=== PATIENT | female | born 1985 | race Caucasian/White ===

== ENCOUNTER 2023-02-02 07:02 | Outpatient (OUT) | payer BC, OTHER, SELFPAY ==
[2023-02-02 07:48] LABS: Bilirubin Direct 0.2 mg/dL (0.0-0.2); Bilirubin Total 0.9 mg/dL (0.2-1.0)
== END 2023-02-02 07:03 | disposition home or self-care (01) ==
LOC: LAB 07:07
PROVIDERS: PCP Family Medicine; Visit Provider Family Medicine
DX: R17 Unspecified jaundice (principal)
CPT/HCPCS: 36415; 82247; 82248

== ENCOUNTER 2023-03-21 04:23 | Observation (INO) | payer BC, SELFPAY ==
[2023-03-21] VITALS (14 sets, daily range): BP systolic 122–165; BP diastolic 71–99; PULSE 80–114; RESP 12–20; TEMP 36.4–37.2; O2SAT 95–99; BMI 34.0; BMI 31.4
--- NOTE | 2023-03-21 04:43 | ED.ABDPAIN1 ---
HPI - Abdominal Pain General Chief Complaint: Abdominal Pain Stated Complaint: LT FLANK PAIN Time Seen by Provider: 03/21/23 04:40 Source: patient Mode of arrival: walk-in Limitations: no limitations History of Present Illness HPI narrative: 37-year-old female presents for left-sided flank pain which started four days ago and is intermittent. She's had kidney stones in the past and thinks it might be another one. No trauma or fever or gross hematuria. The pain is moderate. Related Data Home Medications Medication Instructions Recorded Confirmed albuterol sulfate 90 mcg/actuation inhalation 03/21/23 aerosol inhaler atorvastatin 40 mg tablet mg 03/21/23 bupropion HCl 150 mg 24 hr tablet, mg PO 03/21/23 extended release clonazepam 0.5 mg tablet mg 03/21/23 cyclobenzaprine 10 mg tablet mg 03/21/23 lamotrigine 100 mg tablet mg 03/21/23 lamotrigine 25 mg tablet mg 03/21/23 losartan 50 mg-hydrochlorothiazide tab 03/21/23 12.5 mg tablet propranolol 20 mg tablet mg 03/21/23 sertraline 25 mg tablet mg 03/21/23 Allergies Allergy/AdvReac Type Severity Reaction Status Date / Time sulfamethoxazole Allergy Verified 03/21/23 04:29 [From Bactrim] trimethoprim [From Bactrim] Allergy Verified 03/21/23 04:29 Review of Systems ROS Narrative A ten point review of systems is negative except as noted above. PFSH PFSH Social History Smoking status: Current every day smoker Exam Narrative Exam Narrative: Nurses note and vital signs reviewed and patient is not hypoxic. General: The patient appears well and in no apparent distress. Patient is resting comfortably on cart. Skin: Warm, dry, no pallor noted. There is no rash noted. Head: Normocephalic, atraumatic Eye: Normal conjunctiva, no drainage Ears, Nose, Mouth, and Throat: oral mucosa is moist. Nares patent. Cardiovascular: Regular Rate and Rhythm Respiratory: Patient is in no distress, no accessory muscle use, lungs are clear to auscultation, no wheezing, rales or rhonchi Back: non-tender, no CVA tenderness bilaterally to percussion. no bruise or rash present. GI: mild tenderness to palpation on the left side without mass Musculoskeletal: The patient has no evidence of calf tenderness, no pitting edema, symmetrical pulses noted bilaterally Neurological: A&O, normal speech Psychiatric: Cooperative Constitutional Vital Signs, click to edit/add: Last Vital Signs Temp 97.9 F 03/21/23 04:27 Pulse 94 H 03/21/23 04:27 Resp 16 03/21/23 04:27 BP 165/99 H 03/21/23 04:27 Pulse Ox 99 03/21/23 04:27 O2 Del Method Room Air 03/21/23 04:27 Course Vital Signs Vital signs: Vital Signs Temperature 97.9 F 03/21/23 04:27 Pulse Rate 94 H 03/21/23 04:27 Respiratory Rate 16 03/21/23 04:27 Blood Pressure 165/99 H 03/21/23 04:27 Pulse Oximetry 99 03/21/23 04:27 Oxygen Delivery Method Room Air 03/21/23 04:27 Temperature 97.9 F 03/21/23 04:27 Pulse Rate 94 H 03/21/23 04:27 Respiratory Rate 16 03/21/23 04:27 Blood Pressure 165/99 H 03/21/23 04:27 Pulse Oximetry 99 03/21/23 04:27 Oxygen Delivery Method Room Air 03/21/23 04:27 MDM - Abdominal Pain MDM Narrative Medical decision making narrative: CAT scan reveals what appears to be a 6 cm ovarian cyst and radiologist is recommending an ultrasound. This has been ordered and the patient is signed out to Dr. Jiang change of shift. No evidence of kidney stone. Differential Diagnosis Differential diagnosis: Likely other (kidney stone, diverticulitis) Lab Data Attestation: I reviewed the patient's lab results. Labs: Lab Results 03/21/23 03/21/23 Range/Units 04:30 04:35 WBC 7.5 (4.0-11.0) 10^3/uL RBC 4.12 L (4.20-5.40) 10^6/uL Hgb 13.3 (12.0-16.0) g/dL Hct 39.7 (36.0-48.0) % MCV 96.4 (81.0-99.0) fL MCH 32.3 (26.7-34.0) pg MCHC 33.5 (29.9-35.2) g/dL RDW 12.0 (11.0-15.0) % Plt Count 296 (150-450) 10^3/uL MPV 9.4 L (9.5-13.5) fL Neut % (Auto) 53.5 (43.0-75.0) % Lymph % (Auto) 35.7 (20.5-60.0) % Gaines % (Auto) 7.7 (1.7-12.0) % Eos % (Auto) 2.3 (0.9-7.0) % Baso % (Auto) 0.5 (0.2-2.0) % Neut # (Auto) 4.0 (1.4-6.5) 10^3/uL Lymph # (Auto) 2.7 (1.2-3.8) 10^3/uL Gaines # (Auto) 0.6 (0.3-0.8) 10^3/uL Eos # (Auto) 0.2 (0.0-0.7) 10^3/uL Baso # (Auto) 0.0 (0.0-0.1) 10^3/uL Abs Immat Gran (auto) 0.02 (0.00-0.03) 10^3/uL Imm/Tot Granulo (auto) 0.3 (0.0-0.5) % Sodium 140 (136-145) mmol/L Potassium 3.2 L (3.5-5.1) mmol/L Chloride 102 (98-107) mmol/L Carbon Dioxide 25.4 (21.0-32.0) mmol/L Anion Gap 15.8 BUN 12.0 (7.0-18.0) mg/dL Creatinine 1.48 H (0.55-1.02) mg/dL Est GFR ( Amer) 48 L (>=60) Est GFR (Non-Af Amer) 40 L (>=60) BUN/Creatinine Ratio 8.1 Glucose 134 H (74-106) mg/dL Calcium 9.0 (8.5-10.1) mg/dL Serum HCG, Qual Negative (NEGATIVE) Urine Color Yellow (YELLOW) Urine Clarity Clear (CLEAR) Urine pH 6.0 (5.0-9.0) Ur Specific [place] 1.025 (1.005-1.025) Urine Protein 100 A (NEG/TRACE) mg/dL Urine Glucose (UA) Negative (NEGATIVE) mg/dL Urine Ketones Negative (NEGATIVE) mg/dL Urine Occult Blood Negative (NEGATIVE) Urine Nitrite Negative (NEGATIVE) Urine Bilirubin Negative (NEGATIVE) Urine Urobilinogen 0.2 (0.2-1.0) EU/dL Ur Leukocyte Esterase Negative (NEGATIVE) Urine RBC 0-2 (0-2) #/HPF Urine WBC None seen (NONE SEEN) #/HPF Ur Squamous Epith Cells Few A (NONE/RARE) #/LPF Urine Crystals None seen (None Seen) #/HPF Urine Bacteria None seen (NONE SEEN) #/HPF Urine Casts None seen (NONE SEEN) #/LPF Urine Mucus None seen (NONE SEEN) Imaging Data CT scan - abdomen: Radiologist's impression: Procedure: CT abdomen pelvis w con EXAM: CT abdomen pelvis w con HISTORY: left abd pain COMPARISON: 08/04/2018. TECHNIQUE: Axial CT images were obtained through the abdomen and pelvis. No intravenous contrast was administered. The absence of intravenous contrast does limit evaluation particularly of the parenchymal organs and for adenopathy. Coronal and sagittal reformats were obtained. Dose reduction techniques were achieved by using automated exposure control and/or adjustment of mA and/or kV according to patient size and/or use of iterative reconstruction technique. FINDINGS: FINDINGS: Lungs: Visualized lung li are clear. Liver: Unremarkable with no focal lesion Gallbladder and biliary system: Gallbladder no calcified stones. Biliary ducts no pathologic dilation. Spleen: Spleen is not enlarged Pancreas: Unremarkable Adrenal Glands: Adrenals no masses. Kidneys and ureters: No hydronephrosis or obstructing stones. There is mild prominence of the left renal collecting system with mild left-sided hydroureter visualized likely secondary to the left-sided adnexal cyst. Stable renal cortical scarring again noted along the bilateral kidneys with coarse parenchymal calcifications visualized. Vascular: No evidence of abdominal aortic aneurysm. Lymph nodes: No pathologically enlarged nodes are seen. Gastrointestinal Tract: Stomach: Unremarkable Bowel: No pathologic dilation or mucosal thickening. Postsurgical changes visualized. Appendix: Appendix not clearly visualized no pericecal inflammation to suggest acute appendicitis. Peritoneal Cavity: No free air. No significant fluid collections. Soft tissues abdominal wall: No abdominal wall hernias containing bowel. Small fat-containing anterior abdominal hernia. Reproductive: Patient is status post hysterectomy. There is a left adnexal cyst visualized measuring 6.4 x 6 cm. Bladder: Bladder without apparent masses. The bladder is underdistended which does limit evaluation of the wall. Bony structures: No fractures are seen. IMPRESSION: 1. There is prominence of the left renal collecting system with mild hydroureter likely secondary to a large left sided adnexal cyst which measures approximately 6.4 x 6 cm, transvaginal ultrasound may be done to further evaluate. 2. Renal cortical scarring bilaterally. 3. Status post hysterectomy. Electronically authenticated by: LIBRADO LEIGH Date: 03/21/2023 06:30 Discharge Plan Discharge Patient Disposition: Still a Patient
[2023-03-21 04:51] LABS: Bilirubin Urine NEGATIVE (NEGATIVE); Blood Urine NEGATIVE (NEGATIVE); Clarity Urine CLEAR (CLEAR); Color Urine YELLOW (YELLOW); Glucose Urine UA NEGATIVE (NEGATIVE); Ketones Urine NEGATIVE (NEGATIVE); Leukocyte Esterase Urine NEGATIVE (NEGATIVE); Nitrite Urine NEGATIVE (NEGATIVE); Protein Urine 100 mg/dL (NEG/TRACE); Specific Gravity Urine 1.025 (1.005-1.025); Urobilinogen Urine 0.2 EU/dL (0.2-1.0)
[2023-03-21 04:52] LABS: Basophils Percent Auto 0.5 % (0.2-2.0); Eosinophils Absolute Auto 0.2 10^3/uL (0.0-0.7); Eosinophils Percent Auto 2.3 % (0.9-7.0); Hematocrit 39.7 % (36.0-48.0); Hemoglobin 13.3 g/dL (12.0-16.0); Immature Granulocytes Abs Auto 0.02 10^3/uL (0.00-0.03); Immature Granulocytes Pct Auto 0.3 % (0.0-0.5); Lymphocytes Absolute Auto 2.7 10^3/uL (1.2-3.8); Lymphocytes Percent Auto 35.7 % (20.5-60.0); Mean Corpuscular HGB Conc 33.5 g/dL (29.9-35.2); Mean Corpuscular Hemoglobin 32.3 pg (26.7-34.0); Mean Corpuscular Volume 96.4 fL (81.0-99.0); Mean Platelet Volume 9.4 fL (9.5-13.5); Monocytes Absolute Auto 0.6 10^3/uL (0.3-0.8); Monocytes Percent Auto 7.7 % (1.7-12.0); Neutrophils Percent Auto 53.5 % (43.0-75.0); Platelet Count 296 10^3/uL (150-450); Red Blood Count 4.12 10^6/uL (4.20-5.40); White Blood Count 7.5 10^3/uL (4.0-11.0)
[2023-03-21 04:56] LABS: Anion Gap 15.8; BUN Creatinine Ratio 8.1; Carbon Dioxide 25.4 mmol/L (21.0-32.0); Chloride 102 mmol/L (98-107); Estimated GFR (African America 48 (>=60); Estimated GFR (Non-African Ame 40 (>=60); Glucose 134 mg/dL (74-106); Potassium 3.2 mmol/L (3.5-5.1); Sodium 140 mmol/L (136-145)
[2023-03-21 05:01] LABS: Bacteria Urine NONE SEEN #/HPF (NONE SEEN); Cast Seen? NONE SEEN #/LPF (NONE SEEN); Crystals Seen? None Seen #/HPF (None Seen); Mucus Urine NONE SEEN (NONE SEEN); RBC Urine 0-2 #/HPF (0-2); Squamous Epithelial Cell Urine FEW #/LPF (NONE/RARE); WBC Urine NONE SEEN #/HPF (NONE SEEN)
[2023-03-21 05:21] LABS: HCG Qualitative NEGATIVE (NEGATIVE)
--- NOTE | 2023-03-21 05:22 | CT_ITS ---
The [address] [address] Patient Name: DAGOBERTO GUAMAN MRN: [id number] date: 1985 Sex: F Assigned Patient Location: ER Current Patient Location: ER Accession/Order Number: [id number] Exam Date: 03/21/2023 05:40 Report Date: 03/21/2023 06:30 At the request of: FREDDY GORDON Procedure: CT abdomen pelvis w con EXAM: CT abdomen pelvis w con HISTORY: left abd pain COMPARISON: 08/04/2018. TECHNIQUE: Axial CT images were obtained through the abdomen and pelvis. No intravenous contrast was administered. The absence of intravenous contrast does limit evaluation particularly of the parenchymal organs and for adenopathy. Coronal and sagittal reformats were obtained. Dose reduction techniques were achieved by using automated exposure control and/or adjustment of mA and/or kV according to patient size and/or use of iterative reconstruction technique. FINDINGS: FINDINGS: Lungs: Visualized lung li are clear. Liver: Unremarkable with no focal lesion Gallbladder and biliary system: Gallbladder no calcified stones. Biliary ducts no pathologic dilation. Spleen: Spleen is not enlarged Pancreas: Unremarkable Adrenal Glands: Adrenals no masses. Kidneys and ureters: No hydronephrosis or obstructing stones. There is mild prominence of the left renal collecting system with mild left-sided hydroureter visualized likely secondary to the left-sided adnexal cyst. Stable renal cortical scarring again noted along the bilateral kidneys with coarse parenchymal calcifications visualized. Vascular: No evidence of abdominal aortic aneurysm. Lymph nodes: No pathologically enlarged nodes are seen. Gastrointestinal Tract: Stomach: Unremarkable Bowel: No pathologic dilation or mucosal thickening. Postsurgical changes visualized. Appendix: Appendix not clearly visualized no pericecal inflammation to suggest acute appendicitis. Peritoneal Cavity: No free air. No significant fluid collections. Soft tissues abdominal wall: No abdominal wall hernias containing bowel. Small fat-containing anterior abdominal hernia. Reproductive: Patient is status post hysterectomy. There is a left adnexal cyst visualized measuring 6.4 x 6 cm. Bladder: Bladder without apparent masses. The bladder is underdistended which does limit evaluation of the wall. Bony structures: No fractures are seen. CT/CT abdomen pelvis w con IMPRESSION: 1. There is prominence of the left renal collecting system with mild hydroureter likely secondary to a large left sided adnexal cyst which measures approximately 6.4 x 6 cm, transvaginal ultrasound may be done to further evaluate. 2. Renal cortical scarring bilaterally. 3. Status post hysterectomy. Electronically authenticated by: LIBRADO LEIGH Date: 03/21/2023 06:30
[2023-03-21] MEDS: MORPHINE SULFATE 4 MG/ML VIAL IV ×2 (06:23→06:52)
--- NOTE | 2023-03-21 06:37 | US_ITS ---
The [address] [address] Patient Name: DAGOBERTO GUAMAN MRN: [id number] date: 1985 Sex: F Assigned Patient Location: ER Current Patient Location: ED.MAIN Accession/Order Number: [id number] Exam Date: 03/21/2023 07:02 Report Date: 03/21/2023 07:40 At the request of: FREDDY GORDON Procedure: US pelvis transvaginal EXAMINATION: US pelvis transvaginal HISTORY: abn CT, left sided cyst COMPARISON: CT exam same day FINDINGS: The uterus is surgically absent. Areas of anechoic echogenicity in the cervix likely representing nabothian cysts The right ovary is not visualized Left ovary is enlarged measuring 6.7 x 6.3 x 6.4 cm. Peripheral normal-appearing ovarian tissue with normal color Doppler flow. 6.0 x 5.7 x 5.4 cm area of anechoic echogenicity consistent with a simple cyst. No free fluid US/US pelvis transvaginal IMPRESSION: 6 cm left ovarian simple cyst Electronically authenticated by: SINGH VALADEZ Date: 03/21/2023 07:40
[2023-03-21] MEDS: ONDANSETRON PF 4 MG/2 ML VIAL IV ×2 (06:52→15:55)
[2023-03-21] MEDS: HYDROMORPHONE HCL 1 MG/ML CARTRIDGE IV (08:35)
[2023-03-21] MEDS: LACTATED RINGER'S SOLUTION 1,000 ML 50 ML IV (11:00)
--- NOTE | 2023-03-21 11:53 | P.CN_ITS ---
Consult Note: HPI Data of Consult Patient: new to practice Consult date: 03/21/23 Requesting Physician: Ritchie Woods MD Primary Care Provider: Yajaira CROWLEY Consult Narrative Reason for consult: left flank pain and left hydroureter Narrative: this lady began having left flank pain several days ago. She had no changes in urination. She had no fevers no blood in the urine. She finally presented to the emergency room with left flank pain. A CT scan was done and blood was drawn. She had a normal white count. her creatinine has risen to 1.48. CAT scan showed a 6 cm left ovarian cyst compressing the left ureter and causing left sided hydro- ureterohydronephrosis. Her urine was not infected. She was admitted for pain management. Urology was consulted for the above reasons. cc:: CC: Ritchie Woods MD Review of Systems ROS Status of ROS 10 or more systems reviewed and unremarkable except as noted in history and below PFSH PFSH Medical History Asthma ?J45.909 - Unspecified asthma, uncomplicated (ICD-10) Depression ?F32.A - Depression, unspecified (ICD-10) High cholesterol ?E78.00 - Pure hypercholesterolemia, unspecified (ICD-10) Hypertension ?I10 - Essential (primary) hypertension (ICD-10) Surgical History delivery delivered ?O82 - Encounter for delivery without indication (ICD-10) H/O abdominal hysterectomy ?Z90.710 - Acquired absence of both cervix and uterus (ICD-10) History of bowel resection ?Z90.49 - Acquired absence of other specified parts of digestive tract (ICD- 10) Tonsillectomy planned Family History Father Family history of CHF (congestive heart failure) Family history of hypertension Family history of myocardial infarction Grandmother Family history of diabetes mellitus Sister Family history of hypertension Mother Family history of hypertension Social History Within the past year, how often did you have a drink containing alcohol: never Score interpretation: A score less than 3 is consistent with normal alcohol consumption. 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 Highest level of school completed/degree received: Associate degree: academic program Are you now , , , , never or living with a partner: living with partner Little interest or pleasure in doing things: not at all Feeling down, depressed, or hopeless: not at all Feel stressed/tense/nervous/anxious/difficulty sleeping: only a little Do you think of yourself as: straight/heterosexual Meds Home Medications and Allergies Home Medications Medication Instructions Recorded Confirmed Type albuterol sulfate 90 mcg/actuation 2 puff inhalation .Q4 PRN 03/21/23 03/21/23 History aerosol inhaler shortness of breath or wheezing atorvastatin 40 mg tablet 40 mg PO .QHS 03/21/23 03/21/23 History bupropion HCl 150 mg 24 hr tablet, 150 mg PO .QD 03/21/23 03/21/23 History extended release clonazepam 0.5 mg tablet 0.5 mg PO BID PRN anxiety 03/21/23 03/21/23 History cyclobenzaprine 10 mg tablet 10 mg PO TID PRN muscle spasm 03/21/23 03/21/23 History lamotrigine 100 mg tablet 100 mg PO .QD 03/21/23 03/21/23 History losartan 50 mg-hydrochlorothiazide 1 tab PO .QD 03/21/23 03/21/23 History 12.5 mg tablet propranolol 20 mg tablet 20 mg PO .QD 03/21/23 03/21/23 History sertraline 25 mg tablet 25 mg PO .QD 03/21/23 03/21/23 History Allergies Allergy/AdvReac Type Severity Reaction Status Date / Time sulfamethoxazole Allergy Verified 03/21/23 04:29 [From Bactrim] trimethoprim [From Bactrim] Allergy Verified 03/21/23 04:29 Exam Narrative Exam Narrative: she is resting comfortably and in no acute distress. Afebrile vital signs are stable. Her abdomen is soft and mildly tender in the left CVA area. No masses palpable. Constitutional Vital Signs, click to edit/add: Last Vital Signs Temp 98.2 F 03/21/23 09:44 Pulse 89 03/21/23 09:44 Resp 20 03/21/23 09:44 BP 146/89 H 03/21/23 09:44 Pulse Ox 98 11/16/23 09:44 O2 Del Method Room Air 03/21/23 09:44 Results Labs Labs: Short CBC 03/21/23 Range/Units 04:30 WBC 7.5 (4.0-11.0) 10^3/uL Hgb 13.3 (12.0-16.0) g/dL Hct 39.7 (36.0-48.0) % Plt Count 296 (150-450) 10^3/uL BMP 03/21/23 04:30 Sodium 140 Potassium 3.2 L Chloride 102 Carbon Dioxide 25.4 BUN 12.0 Creatinine 1.48 H Glucose 134 H Calcium 9.0 Urine 03/21/23 Range/Units 04:35 Urine Color Yellow (YELLOW) Urine Clarity Clear (CLEAR) Urine pH 6.0 (5.0-9.0) Ur Specific [place] 1.025 (1.005-1.025) Urine Protein 100 A (NEG/TRACE) mg/dL Urine Glucose (UA) Negative (NEGATIVE) mg/dL Assessment and Plan Assessment and Plan (1) Hydroureter on left: Assessment and Plan: this lady has a 6 cm left cyst on her ovary which seems to be compressing her left ureter and causing hydroureteronephrosis. I believe this is causing her pain and her above-knee amputation I with a creatinine of 1.48. She needs to get stented to decompress her left ureter and kidney system. Also, the stent will act as a safety guide during surgery for FIELD TALENT QUALIFICATION SPECIALIST when they removed her cyst and/or ovary. Dr. Bay and myself have arranged it so that this patient can get added onto the surgery scheduled today for a joint procedure where I will do cystoscopy and left stent placement and he will do her left ovary surgery. Over 30 minutes of clinical time was spent talking with the Emergency Room doctor, the nurses and the patient and reviewing her CT scan and chart. Thank you for letting me take part in her care. (2) Left flank pain: (3) Acute kidney injury:
--- NOTE | 2023-03-21 11:54 | CM.NOTE ---
Rounds made with Dr. Thomas, pt in reverse isolation d/t Neutropenia. Dr. Thomas will reach out to Dr. Green today for further plan of care.
--- NOTE | 2023-03-21 12:49 | P.URON_ITS ---
Urology Surgery Operative Note Operative Note Procedure Date: 03/21/23 Time Out Performed: yes Pre-op Diagnosis: left flank pain and left hydroureteronephrosis Post-op Diagnosis: same as pre-op Procedures performed: #1. Cystoscopy. #2. Left stent placement 6 Bulgarian variable length Anesthesia: GETA Primary Surgeon: Ritchie Woods Complications: none Estimated blood loss (mL): 0 Findings: column of dye from the kidney all the way down to the distal 3rd of the left ureter at the pelvic brim Specimens: non- Drains: 6 Bulgarian variable length left ureteral stent Indications for Procedures: this lady has a 6 cm left ovarian cyst obstructing her ureter causing flank pain hydroureteronephrosis and a K I. She now presents for cystoscopy left stent alexander cement and left ovarian cyst procedure by Dr. Bay. She has signed an informed consent. Detailed description of Procedure: The patient was brought to the operating room and placed on the operating room table in the supine position. SCDs were placed on the lower extremities and turned on and functioning during the entire case. Timeout was done by all parties in the room. We all agreed upon the patient's identification and the planned procedures for this patient. Genn. anesthesia was then administered. The patient was then repositioned into the modified dorsal lithotomy position. All pressure points were satisfactorily padded. Genitalia were sterilely prepped and draped in usual fashion.I started by passing a 22 Bulgarian Olympus cystoscope per urethra and into the bladder. Panendoscopy in the bladder showed no evidence of any tumors stones or foreign bodies. I then used fluoroscopy and one could see a standing column of contrast from the hydronephrotic left kidney all the way down the dilated ureter to the pelvic brim. At that point the contrast abruptly stopped and one could see lateral deviation of the guidewire in the ureter. This presumably represented the area of the cyst. I then slid a 6 Bulgarian variable length ureteral stent over the wire and up the ureter and into the kidney. The wire was removed and there were good curls in the kidney and in the bladder. A high-pressure E flux of urine was seen coming down into the bladder. The bladder was drained of its contents and the scope was then removed. I then left the room and Dr. Bay then started his portion of the case.
--- NOTE | 2023-03-21 14:04 | PM.ONB ---
Brief Operative Note Date of procedure: 03/21/23 Pre-op diagnosis: lt ovarian cyst, ho significant adhesions, lt hydroureter Post-op diagnosis: same as pre-op Procedure: NAME OF PROCEDURE: [diagnostic laparoscopy ] PROCEDURE: The patient was taken back to the Operating Room where she was placed in dorsal lithotomy position after given general anesthesia. The patient was prepped and draped in normal sterile fashion. A sponge stick was placed into the patient's vagina. Attention was turned to the patient's abdomen, where a small umbilical incision was made. This placement was aborted dt the significant adhesion and possibility of underlying bowel, Decision was then decided to place a port handwidth above the umbilicus. The fascia was tented using Andrew clamps and the fascia was entered sharply. Confirmation of intraabdominal placement of the 10 mm port was confirmed under direct visualization using a laparoscope. The patient's abdomen was then insufflated using CO2 gas with approximately 4 liters. Significant adhesions was noted, a small window was identified and were able to have some visualization, A second port was placed left laterally, this was done under direct visualization with a 5 mm port. Survey of the patient's abdomen demonstrated significant adhesions of bowel to anterior and pelvic side wall, could not identify left ovary, uterus appeared to be absent. decision was made to abort procedure for safety of the patient. All instruments were removed from the patient's abdomen. The patient's abdomen was deinsufflated of CO2 gas. The patient tolerated the procedure well. Sponge stick was removed from the patient's vagina. The patient's infraumbilical fascia was closed using #0 Vicryl on a GI needle. The patient's skin was closed laterally and infraumbilically using 4-0 Vicryl. The patient tolerated the procedure well. Sponge, lap and needle counts were correct x 2. The patient was taken to Recovery Room in stable condition.Clips from prior surgery noted adhered to bladder, the clips were grasped and gently removed Surgeon: Isaiah Bay Sheet Tailer: Kierra Tony Estimated blood loss (mL): 5 Pathology: none sent Condition: stable Disposition: floor
[2023-03-21] MEDS: LACTATED RINGER'S SOLUTION 1,000 ML 150 ML IV (15:05)
--- NOTE | 2023-03-21 16:07 | PC.NURSE ---
vicodin, ibuprofen, colace RX given to significant other to take to pharmacy at this time
[2023-03-21] MEDS: SOLIFENACIN SUCCINATE 10 MG TABLET PO (17:26)
[2023-03-21] MEDS: PROMETHAZINE HCL 25 MG TABLET PO (17:26)
== END 2023-03-21 18:40 | disposition home or self-care (01) ==
LOC: ER 09:39 → MS 09:43
PROVIDERS: Emergency Medicine; Admitting Provider Obstetrics & Gynecology; Emergency Provider Emergency Medicine; PCP Family Medicine; Visit Provider Urology
PROC: (CPT 49320; principal; 2023-03-21 12:00)
PROC: (CPT 52332; 2023-03-21 12:00)
DX: N83.202 Unspecified ovarian cyst, left side (principal); N13.30 Unspecified hydronephrosis; N17.9 Acute kidney failure, unspecified; J45.909 Unspecified asthma, uncomplicated; F32.A Depression, unspecified; E78.00 Pure hypercholesterolemia, unspecified; I10 Essential (primary) hypertension; Z90.49 Acquired absence of other specified parts of digestive tract; F17.210 Nicotine dependence, cigarettes, uncomplicated; Z90.710 Acquired absence of both cervix and uterus; Z79.899 Other long term (current) drug therapy
CPT/HCPCS: 49320; 52332; 36415; 74177; 74420; 76830; 80048; 81001; 84703; 85025; 96374; 96375; 99285; G0378; J1170; J2704; Q9966